=== PATIENT | male | born 1965 | race Caucasian/White ===

== ENCOUNTER → 2016-11-16 | Outpatient (REF) | payer BC ==
[~2016-11-16] MED LIST: FLOM5CAP PO; MELA10CA PO; MULT1TAB8 PO; PROSCAP PO; VENL150C43 PO; VITA200016 PO; [UNRECOGNIZED DRUG - CODE] XX
== END ==
LOC: M LABDRWAD 12:36
PROVIDERS: ATTEND Urology
DX: F32.9 Major depressive disorder, single episode, unspecified (principal); E78.1 Pure hyperglyceridemia; R73.01 Impaired fasting glucose; E55.9 Vitamin D deficiency, unspecified

== ENCOUNTER → 2016-11-16 | Outpatient (REF) | payer BC ==
[2016-11-16 12:46] LABS: BASO % 0.5 % (0.0-1.0); EOS # 0.1 K/mm3 (0.0-0.50); EOS % 1.1 % (0.0-3.0); LARGE UNSTAINED CELL # 0.1 K/mm3 (0.0-0.4); LARGE UNSTAINED CELL % 1.1 % (0.0-4.0); LYMPH # 1.8 K/mm3 (1.5-4.5); LYMPH % 32.6 % (24.0-44.0); MEAN CORPUSCULAR HEMOGLOBIN 30.4 pg (27.0-33.0); MEAN CORPUSCULAR HGB CONC 33.3 g/dl (32.0-36.5); MEAN CORPUSCULAR VOLUME 91.4 fl (80.0-96.0); MONO # 0.3 K/mm3 (0.0-0.8); MONO % 6.3 % (0.0-5.0); NEUTROPHILS # 3.2 K/mm3 (1.8-7.7); NEUTROPHILS % 58.4 % (36.0-66.0); PLATELET COUNT, AUTOMATED 236 k/mm3 (150-450); WHITE BLOOD COUNT 5.4 K/mm3 (4.0-10.0)
[2016-11-16 13:00] LABS: ALBUMIN 3.9 GM/DL (3.2-5.2); ALBUMIN/GLOBULIN RATIO 1.39 (1.00-1.93); ALKALINE PHOSPHATASE 51 U/L (45-117); ALT/SGPT 30 U/L (12-78); ANION GAP 6 MEQ/L (8-16); AST/SGOT 11 U/L (15-37); BILIRUBIN,TOTAL 0.9 MG/DL (0.2-1.0); BLOOD UREA NITROGEN 13 MG/DL (7-18); CALCIUM LEVEL 8.9 MG/DL (8.5-10.1); CARBON DIOXIDE LEVEL 30 MEQ/L (21-32); CHLORIDE LEVEL 106 MEQ/L (98-107); CREATININE FOR GFR 1.07 MG/DL (0.70-1.30); GLOMERULAR FILTRATION RATE > 60.0 (>56); GLUCOSE, FASTING 106 MG/DL (70-105); POTASSIUM SERUM 4.7 MEQ/L (3.5-5.1); SODIUM LEVEL 142 MEQ/L (136-145); TOTAL PROTEIN 6.7 GM/DL (6.4-8.2)
== END ==
LOC: M SFHCADAM 07:38
PROVIDERS: ATTEND Physician Assistant Medical
DX: F32.9 Major depressive disorder, single episode, unspecified (principal); E78.1 Pure hyperglyceridemia; R73.01 Impaired fasting glucose; E55.9 Vitamin D deficiency, unspecified

== ENCOUNTER → 2017-05-31 | Outpatient (CLI) | payer BC ==
--- NOTE | 2017-05-31 16:53 | REP ---
Lumbar spine series: Five views. History: Pain in the left hip. Back pain. Findings: Lumbar vertebral body heights are preserved. There is mild disc space narrowing at L4-5. Minimal discogenic spurring is seen at L4-5 and L5-S1. Discogenic spurring is also noted in the lower thoracic spine. There is no evidence of spondylolysis or spondylolisthesis. Mild facet hypertrophy is noted at L4-5 and L5-S1 bilaterally. Sacrum and SI joints are intact. Psoas margins are symmetric. Impression: Mild degenerative disc changes. Signed by David Wilson MD 05/31/2017 05:08 P
--- NOTE | 2017-06-01 09:52 | REP ---
Clinical: Pain. Technique: Neutral and frog lateral views of the left hip. Findings: Age-related changes are appreciated. No significant, overt osteoarthritic degenerative changes are identified. No acute fracture or dislocation. No significant periarticular calcifications. Surrounding soft tissues are unremarkable. Impression: Mild age-related changes. Signed by Francesco Vela MD 06/01/2017 09:43 A
== END ==
LOC: M ADAMS 09:49
PROVIDERS: ATTEND Physician Assistant Medical
DX: M25.552 Pain in left hip (principal)

== ENCOUNTER → 2018-01-02 | Outpatient (REF) | payer BC ==
[2018-01-02 13:22] LABS: PROSTATIC SPECIFIC AG MONITOR 1.42 NG/ML (< 4.0)
== END ==
LOC: M LABDRWAD 12:40
DX: N40.0 Benign prostatic hyperplasia without lower urinary tract symptoms (principal)
CPT/HCPCS: 84153